=== PATIENT | female | born 1945 | race Asian ===

== ENCOUNTER → 2018-11-12 | Outpatient (CLI) | payer MEDICARE | END | disposition home or self-care (01) | LOC: CFH 10:29 | PROVIDERS: ATTEND Nurse Practitioner Family | DX: Z12.31 Encounter for screening mammogram for malignant neoplasm of breast (principal) | CPT/HCPCS: 77067 ==

== ENCOUNTER 2019-05-09 12:36 | Emergency (ER) | payer MEDICARE ==
[~2019-05-09] VITALS: Ht 160 cm; Wt 65.1 kg
[2019-05-09 15:23] VITALS: BP 174/88
--- NOTE | 2019-05-09 16:07 | NUR ---
Patient given discharge instructions and they have confirmed that they understand the instructions. Patient ambulatory with steady gait.
== END 2019-05-09 16:08 | disposition home or self-care (01) ==
LOC: ED 14:55
DX: S00.12XA Contusion of left eyelid and periocular area, initial encounter (principal); S89.92XA Unspecified injury of left lower leg, initial encounter; W19.XXXA Unspecified fall, initial encounter; Y93.K1 Activity, walking an animal; Y92.410 Unspecified street and highway as the place of occurrence of the external cause; Y99.8 Other external cause status
CPT/HCPCS: 70450; 70486; 99284